=== PATIENT | female | born 1990 | race American Indian/Alaskan Native ===

== ENCOUNTER 2018-07-16 09:27 | Emergency (ER) | payer OTHER ==
[~2018-07-16] VITALS: Ht 165.1 cm; Wt 68.4 kg
--- NOTE | 2018-07-16 10:16 | REP ---
Clinical: Trauma. Technique: AP, lateral, bilateral oblique views of the left ankle. Findings: There is a fracture at the base of the fifth metatarsal bone. Remainder of the examination appears normal. Impression: Fracture at the base of the fifth metatarsal bone. Electronically Signed by Candelario Rosario MD 07/16/2018 10:08 A
--- NOTE | 2018-07-16 10:18 | REP ---
Clinical: Trauma. Technique: AP, lateral, bilateral oblique views of the left foot. Findings: There is a transverse fracture at the base of the fifth metatarsal bone with overlying soft tissue swelling. Remainder examination appears normal. Impression: Transverse fracture at the base of the fifth metatarsal bone. Electronically Signed by Candelario Rosario MD 07/16/2018 10:09 A
[2018-07-16] MEDS ORDERED: ACET-897 PO (11:20)
[2018-07-16 11:29] VITALS: BP 101/58
== END 2018-07-16 11:55 | disposition home or self-care (01) ==
LOC: M ED 09:27
DX: S92.352A Displaced fracture of fifth metatarsal bone, left foot, initial encounter for closed fracture (principal); X50.9XXA Other and unspecified overexertion or strenuous movements or postures, initial encounter; Y92.310 Basketball court as the place of occurrence of the external cause; Y93.67 Activity, basketball; Z88.0 Allergy status to penicillin